=== PATIENT | female | born 1975 | race Caucasian/White ===

== ENCOUNTER 2019-07-23 20:03 | Outpatient (CLI) | payer BC | END 2019-07-24 06:50 | disposition home or self-care (01) | LOC: SLEEP 20:03 | DX: G47.33 Obstructive sleep apnea (adult) (pediatric) (principal); G47.00 Insomnia, unspecified; I49.9 Cardiac arrhythmia, unspecified; I47.1 Supraventricular tachycardia; I10 Essential (primary) hypertension | CPT/HCPCS: 95810 ==